=== PATIENT | female | born 1985 | race Caucasian/White ===

== ENCOUNTER 2019-03-08 01:55 | Emergency (ER) | payer OTHER ==
[2019-03-08 04:19] LABS: D-DIMER 361.06 ng/ml (<460)
== END 2019-03-08 04:27 | disposition home or self-care (01) ==
LOC: FTE 01:55
DX: M79.604 Pain in right leg (principal); F17.210 Nicotine dependence, cigarettes, uncomplicated
CPT/HCPCS: 85378; 99283